=== PATIENT | male | born 1995 | race Caucasian/White ===

== ENCOUNTER 2020-06-28 16:23 | Inpatient (IN) | payer BC ==
[~2020-06-28] VITALS: Ht 170.2 cm; Wt 63.5 kg
[2020-06-28 16:32] VITALS: BP 172/89
[2020-06-28 17:01] LABS: ABSOLUTE BASOPHILS 0.1 thou/uL (0.0-0.2); ABSOLUTE EOSINOPHILS 0.2 thou/uL (0.0-0.7); ABSOLUTE LYMPHOCYTES 1.8 thou/uL (0.8-5.3); ABSOLUTE NEUTROPHILS 7.7 thou/uL (1.6-8.1); BASOPHILS 0.7 %; EOSINOPHILS 1.7 %; HEMATOCRIT 43.8 % (42.0-52.0); HEMOGLOBIN 14.7 gm/dL (14.0-18.0); LYMPHOCYTES 16.4 %; MCH 31.1 pg (26.0-34.0); MCHC 33.7 g/dL (28.0-37.0); MCV 92.5 fL (80.0-100.0); MONOCYTES 9.6 %; MPV 8.1 fl. (7.2-11.1); NUCLEATED RBCS 0 /100WBC; PLATELET COUNT* 234 thou/uL (150-400); POLYS 71.6 %; RBC 4.74 mil/uL (4.50-6.00); RDW-CV 13.7 % (10.5-14.5); WBC 10.8 thou/uL (4.0-11.0)
[2020-06-28 17:07] LABS: CALCIUM 8.8 mg/dL (8.5-10.1); CREATININE 0.9 mg/dL (0.6-1.3); POTASSIUM 3.6 mmol/L (3.5-5.1)
[2020-06-28 17:11] LABS: ALBUMIN 3.9 g/dL (3.4-5.0); TOTAL BILIRUBIN 0.3 mg/dL (<0.1-1.0); TOTAL PROTEIN 7.7 g/dL (6.4-8.2)
[2020-06-28 21:20] VITALS: BP 161/87
[2020-06-28 21:25] VITALS: BP 153/95
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
[2020-06-29 08:00] VITALS: BP 131/77
[2020-06-29] MEDS ORDERED: IBUPROFEN 800800 M1 PO (11:44)
[2020-06-29] MEDS ORDERED: HYDROCODON-ACE1 EAC7 PO (11:44)
[2020-06-29] MEDS ORDERED: KEFLEX500 M1 PO (11:44)
[2020-06-29 13:04] VITALS: BP 131/77
== END 2020-06-29 14:25 | disposition home or self-care (01) | DRG 909 ==
LOC: M.ERS 16:23 → M.TBA-ER 17:32 → M.2W 17:32
PROVIDERS: Emergency Medicine Emergency Medical Services; ADMIT Internal Medicine; ATTEND Internal Medicine
PROC: 0YQPXZZ Repair Right 1st Toe, External Approach (ICD-10-PCS; principal; 2020-06-28)
PROC: 0SSPXZZ Reposition Right Toe Phalangeal Joint, External Approach (ICD-10-PCS; principal; 2020-06-28)
DX: S98.121A Partial traumatic amputation of right great toe, initial encounter (principal); Z20.828 Contact with and (suspected) exposure to other viral communicable diseases; V29.88XA Motorcycle rider (driver) (passenger) injured in other specified transport accidents, initial encounter; Y93.89 Activity, other specified; Y92.89 Other specified places as the place of occurrence of the external cause; Y99.8 Other external cause status; Z72.89 Other problems related to lifestyle; Z23 Encounter for immunization

== ENCOUNTER → 2020-07-04 | Day surgery (SDC) | payer BC ==
[~2020-07-04] MED LIST: HYDROCODON-ACE1 EAC7 PO; IBUPROFEN 800800 M1 PO; KEFLEX500 M1 PO
[2020-07-04 09:36] LABS: ABSOLUTE EOSINOPHILS 0.2 thou/uL (0.0-0.7); ABSOLUTE LYMPHOCYTES 1.6 thou/uL (0.8-5.3); ABSOLUTE MONOCYTES 0.8 thou/uL (0.0-1.2); ABSOLUTE NEUTROPHILS 4.8 thou/uL (1.6-8.1); BASOPHILS 0.6 %; HEMATOCRIT 47.7 % (42.0-52.0); LYMPHOCYTES 21.9 %; MCH 31.3 pg (26.0-34.0); MCHC 33.6 g/dL (28.0-37.0); MCV 93.1 fL (80.0-100.0); MONOCYTES 10.4 %; MPV 7.9 fl. (7.2-11.1); NUCLEATED RBCS 0 /100WBC; PLATELET COUNT* 262 thou/uL (150-400); POLYS 64.1 %; RBC 5.12 mil/uL (4.50-6.00); RDW-CV 12.7 % (10.5-14.5); WBC 7.5 thou/uL (4.0-11.0)
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
== END | disposition home or self-care (01) ==
LOC: M.SUR 07:44
PROVIDERS: ATTEND Orthopaedic Surgery
DX: S98.121A Partial traumatic amputation of right great toe, initial encounter (principal); I96 Gangrene, not elsewhere classified; Z20.828 Contact with and (suspected) exposure to other viral communicable diseases; Z79.899 Other long term (current) drug therapy; V89.2XXA Person injured in unspecified motor-vehicle accident, traffic, initial encounter; Y93.89 Activity, other specified; Y92.89 Other specified places as the place of occurrence of the external cause; Y99.8 Other external cause status